=== PATIENT | female | born 1995 | race Two or more races ===

== ENCOUNTER 2022-12-21 11:20 | Emergency (ER) | payer OTHER ==
[~2022-12-21] VITALS: Ht 165.1 cm; Wt 65.8 kg
[2022-12-21 11:43] VITALS: BP 123/87; PULSE 84; RESP 18; O2SAT 97
[2022-12-21] MEDS ORDERED: LIDOCAINE 1% HCL (LOCAL ANESTH.) INJ 20ML MDV ID ONE (14:30)
[2022-12-21] MEDS ORDERED: ACETAMINOPHEN 500 MG TAB PO ONE (15:15)
[2022-12-21] MEDS ORDERED: KETOROLAC TROMETH 30 MG/ML 1ML VIAL IM ONE (15:15)
[2022-12-21] MEDS ORDERED: NEOMYCIN-BACITRACIN-POLYM UNITDOSE PKG TOP OINT TOP ONE (17:15)
[2022-12-21] MEDS ORDERED: CEPH500C PO (17:15)
== END 2022-12-21 17:33 | disposition home or self-care (01) ==
LOC: ER 11:20
DX: S61.212A Laceration without foreign body of right middle finger without damage to nail, initial encounter (principal); S61.214A Laceration without foreign body of right ring finger without damage to nail, initial encounter; W31.89XA Contact with other specified machinery, initial encounter; Y93.89 Activity, other specified; Y92.89 Other specified places as the place of occurrence of the external cause; Y99.8 Other external cause status
CPT/HCPCS: 12001; 73130; 96372; 99283; J1885; J2001

== ENCOUNTER 2022-12-28 09:59 | Emergency (ER) | payer OTHER ==
[~2022-12-28] VITALS: Ht 160 cm; Wt 66.1 kg
[~2022-12-28 09:59] MED LIST: CEPH500C PO
[2022-12-28 10:53] VITALS: BP 122/69; PULSE 68; RESP 18; TEMP 97.4; O2SAT 99
[2022-12-28] MEDS ORDERED: NEOMYCIN-BACITRACIN-POLYM UNITDOSE PKG TOP OINT TOP ONE (11:00)
== END 2022-12-28 11:43 | disposition home or self-care (01) ==
LOC: ER 09:59
DX: S61.218D Laceration without foreign body of other finger without damage to nail, subsequent encounter (principal); Z48.00 Encounter for change or removal of nonsurgical wound dressing; Z79.899 Other long term (current) drug therapy; X58.XXXD Exposure to other specified factors, subsequent encounter